=== PATIENT | female | born 1945 | race Caucasian/White ===

== ENCOUNTER 2023-12-13 14:31 | Inpatient (IN) | payer OTHER ==
[~2023-12-13] VITALS: Ht 162.6 cm; Wt 62.5 kg
[2023-12-13] MEDS: cloNIDine HCL 0.1 MG TAB PO ONE (15:06)
[2023-12-13 15:32] LABS: Basophils # (auto) 0 10 ^3/uL (0-0.2); Basophils % (auto) 0.4 % (0.0-2.0); Eosinophils # (auto) 0.1 10 ^3/uL (0-0.8); Eosinophils % (auto) 0.9 % (0.0-7.0); Hematocrit 41.7 % (36.0-46.0); Hemoglobin 13.9 g/dL (12.2-16.2); Lymphocytes % (auto) 14.8 % (10.0-50.0); Mean Corpuscular Hemoglobin 31.8 pg (28.0-32.0); Mean Corpuscular Hgb Conc. 33.5 g/dL (32.0-36.0); Mean Corpuscular Volume 95.1 fL (80.0-100.0); Monocytes # (auto) 0.3 10 ^3/uL (0-1.3); Monocytes % (auto) 4.9 % (0.0-12.0); Neutrophils # (auto) 5.2 10 ^3/uL (1.6-8.6); Nucleated Red Blood Cells % 0.1 %; Platelet Count (auto) 386 10^3/uL (140-450); Red Blood Cells 4.38 10^6/uL (4.0-5.20); Red Cell Distribution Width 14.1 % (11.8-14.3); White Blood Cell 6.6 10^3/uL (4.4-10.8)
[2023-12-13 15:51] LABS: Alanine Aminotransferase 22 U/L (7-40); Albumin 4.2 g/dL (3.2-4.8); Alkaline Phosphatase 92 U/L (46-116); Anion Gap 8 (5-15); Aspartate Aminotransferase 34 U/L (13-40); BUN/Creatinine Ratio 20.8 (10.0-20.0); Bilirubin, Total 0.5 mg/dL (0.2-1.0); Blood Urea Nitrogen 22 mg/dL (9-23); Calcium 9.2 mg/dL (8.7-10.4); Carbon Dioxide 25 mmol/L (20-31); Chloride 108 mmol/L (98-107); Glucose 104 mg/dL (74-106); Potassium 4.4 mmol/L (3.5-5.1); Sodium 141 mmol/L (136-145); Total Protein 6.3 g/dL (5.7-8.2)
[2023-12-13] MEDS: MECLIZINE HCL 25 MG TAB PO ONE (17:14)
[2023-12-13] MEDS: ONDANSETRON HCL 4 MG/2 ML VIAL IV ONE (17:14)
[2023-12-13] MEDS ORDERED: ACETAMINOPHEN 500 MG TAB PO PRN (22:15)
[2023-12-13] MEDS ORDERED: hydrALAZINE HCL 20 MG/ML VL IV PRN (22:15)
[2023-12-13] MEDS ORDERED: traMADol HCL 50 MG TAB PO PRN (22:15)
[2023-12-13] MEDS ORDERED: ONDANSETRON HCL 4 MG/2 ML VIAL IV PRN (22:15)
[2023-12-13] MEDS ORDERED: MORPHINE SULFATE INJ 2 MG/ml SYRG IV PRN (22:15)
[2023-12-13 23:30] VITALS: PULSE 68; RESP 16; O2SAT 96
[2023-12-13] MEDS: SENNA 8.6 MG TAB PO ONE (23:37)
[2023-12-13] MEDS: CLOPIDOGREL BISULFATE 75 MG TAB PO ONE (23:37)
[2023-12-13] MEDS: LOSARTAN POTASSIUM 50 MG TAB PO ONE (23:38)
[2023-12-13] MEDS: OXYCODONE W/ ACETAMINOPHEN 5/325MG TABLET PO PRN (23:39)
[2023-12-13] MEDS: ATORVASTATIN 20 MG TAB PO ONE (23:39)
[2023-12-14 01:36] LABS: Urine Bacteria FEW /hpf (None Seen); Urine Blood Negative /uL (Negative); Urine Clarity Clear (Clear); Urine Color Light-Yellow (Yellow); Urine Protein, UAD Negative (Negative); Urine Specific Gravity 1.011 (1.001-1.035); Urine Urobilinogen Normal (Negative); Urine WBC 11 /hpf (0 - 5); Urine WBC Clumps PRESENT /hpf (None Seen); Urine pH 5.5 (5.0-9.0)
[2023-12-14 01:38] LABS: Amphetamine Screen, Urine Neg (NEGATIVE); Barbiturate Scree,Urine Neg (NEGATIVE); Benzodiazephine Screen, Urine Neg (NEGATIVE); Cocaine Screen, Urine Neg (NEGATIVE); Opiate Scree,Urine Neg (NEGATIVE); Phencyclidine Screen, Urine Neg (NEGATIVE)
[2023-12-14 02:28] LABS: Cannabinoid Screen, Urine Neg (NEGATIVE)
[2023-12-14] MEDS ORDERED: cefTRIAXone 1GM/50ML D5W 50 ML IV SCH (03:00)
[2023-12-14] MEDS: SODIUM CHLORIDE 0.9% 500 ML IV ONE (03:13)
[2023-12-14] MEDS: PANTOPRAZOLE 40 MG/10 ML VIAL INJ IV SCH (03:13)
[2023-12-14] MEDS: SODIUM CHLORIDE 0.9% 1,000 ML IV SCH (03:57)
[2023-12-14] MEDS: cefTRIAXone 1GM/50ML D5W 50 ML IV ONE (04:05)
[2023-12-14] MEDS: OXYCODONE W/ ACETAMINOPHEN 5/325MG TABLET PO PRN (04:06)
[2023-12-14] MEDS: ATORVASTATIN 20 MG TAB PO ONE (04:06)
[2023-12-14 06:34] LABS: Basophils # (auto) 0 10 ^3/uL (0-0.2); Basophils % (auto) 0.7 % (0.0-2.0); Eosinophils # (auto) 0.1 10 ^3/uL (0-0.8); Eosinophils % (auto) 1.9 % (0.0-7.0); Hematocrit 35.7 % (36.0-46.0); Lymphocytes # (auto) 1.7 10 ^3/uL (0.4-5.4); Lymphocytes % (auto) 33.7 % (10.0-50.0); Mean Corpuscular Hemoglobin 31.9 pg (28.0-32.0); Mean Corpuscular Hgb Conc. 33.8 g/dL (32.0-36.0); Mean Corpuscular Volume 94.6 fL (80.0-100.0); Monocytes # (auto) 0.5 10 ^3/uL (0-1.3); Monocytes % (auto) 10.2 % (0.0-12.0); Neutrophils # (auto) 2.8 10 ^3/uL (1.6-8.6); Neutrophils % (auto) 53.5 % (37.0-80.0); Nucleated Red Blood Cells % 0.1 %; Platelet Count (auto) 339 10^3/uL (140-450); Red Blood Cells 3.77 10^6/uL (4.0-5.20); Red Cell Distribution Width 13.6 % (11.8-14.3); White Blood Cell 5.2 10^3/uL (4.4-10.8)
[2023-12-14 06:48] LABS: Anion Gap 5 (5-15); Carbon Dioxide 26 mmol/L (20-31); Chloride 110 mmol/L (98-107); Potassium 4.5 mmol/L (3.5-5.1); Sodium 141 mmol/L (136-145)
[2023-12-14 06:49] LABS: Calcium 8.8 mg/dL (8.7-10.4)
[2023-12-14 06:55] LABS: BUN/Creatinine Ratio 15.1 (10.0-20.0); Blood Urea Nitrogen 16 mg/dL (9-23); Glucose 83 mg/dL (74-106)
[2023-12-14] MEDS: KETOROLAC TROMETH 30 MG/ML 1ML VIAL IV ONE (08:15)
[2023-12-14 09:32] LABS: COVID19 ANTIGEN SOFIA FIA NEGATIVE (NEGATIVE)
[2023-12-14] MEDS ORDERED: LOSARTAN POTASSIUM 50 MG TAB PO SCH (10:00)
[2023-12-14] MEDS: ENOXAPARIN SOD 30 MG/0.3 ML SYRINGE SC SCH (10:00)
[2023-12-14] MEDS ORDERED: CLOPIDOGREL BISULFATE 75 MG TAB PO SCH (10:00)
[2023-12-14] MEDS: LOSARTAN POTASSIUM 50 MG TAB PO SCH (11:08)
[2023-12-14] MEDS: CLOPIDOGREL BISULFATE 75 MG TAB PO SCH (11:08)
[2023-12-14 15:39] VITALS: BP 147/75; PULSE 56; RESP 22; TEMP 97.7
[2023-12-14 17:00] VITALS: BP 147/75; PULSE 56; RESP 22; TEMP 97.7; O2SAT 91
[2023-12-14 21:00] VITALS: BP 137/84; PULSE 74; RESP 18; TEMP 98.6; O2SAT 91
[2023-12-14] MEDS ORDERED: DOCUSATE SOD 100 MG CAP PO SCH (22:00)
[2023-12-14] MEDS: DOCUSATE SOD 100 MG CAP PO SCH (22:18)
[2023-12-14] MEDS: ATORVASTATIN 20 MG TAB PO SCH (22:23)
[2023-12-14] MEDS: SENNA 8.6 MG TAB PO SCH (22:23)
[2023-12-15] VITALS (7 sets, daily range): BP systolic 130–183; BP diastolic 81–106; PULSE 50–94; RESP 18–20; TEMP 97.1–98.4; O2SAT 92–98
[2023-12-15] MEDS: cefTRIAXone 1GM/50ML D5W 50 ML IV SCH (08:24)
[2023-12-15] MEDS ORDERED: LOSA-535 PO (12:00)
[2023-12-15] MEDS ORDERED: CLOP75TA70 PO (12:01)
[2023-12-15] MEDS ORDERED: CLON0.1T PO (12:02)
[2023-12-15] MEDS ORDERED: ATOR-47 PO (12:03)
[2023-12-15] MEDS ORDERED: SENN-58 PO (12:05)
[2023-12-15] MEDS ORDERED: ASPI-543 PO (12:06)
[2023-12-15] MEDS ORDERED: MULT-1018 PO (12:06)
[2023-12-15] MEDS: hydrALAZINE HCL 20 MG/ML VL IV PRN (17:52)
[2023-12-15] MEDS: cloNIDine HCL 0.1 MG TAB PO SCH (23:07)
[2023-12-16] VITALS (9 sets, daily range): BP systolic 138–162; BP diastolic 82–102; PULSE 71–109; RESP 18–20; TEMP 97.9–98.5; O2SAT 92–99
[2023-12-16] MEDS: ONDANSETRON ODT 4 MG TAB PO PRN (02:20)
[2023-12-16] MEDS: ACETAMINOPHEN 500 MG TAB PO PRN (02:22)
[2023-12-16] MEDS: DOXYCYCLINE 100MG/250ML 250 ML IV SCH (13:13)
[2023-12-16] MEDS: AZITHROMYCIN 500MG/ 250ML 250 ML IV SCH (16:56)
[2023-12-16] MEDS: NYSTATIN TOPICAL POWDER 15GM TOP SCH (21:51)
[2023-12-17] VITALS (7 sets, daily range): BP systolic 131–162; BP diastolic 59–94; PULSE 65–117; RESP 18–20; TEMP 97.7–98.6; O2SAT 90–95
[2023-12-17] MEDS ORDERED: SENNA 8.6 MG TAB PO SCH (22:00)
[2023-12-17] MEDS ORDERED: DOCUSATE SOD 100 MG CAP PO SCH (22:00)
== END 2023-12-17 19:20 | DRG 392 ==
LOC: EDBD 14:31 → ER 14:31 → OVERFLOW 22:23 → EAST 12-14 14:27
PROVIDERS: ATTEND Internal Medicine
DX: K52.9 Noninfective gastroenteritis and colitis, unspecified (principal); N30.00 Acute cystitis without hematuria; F11.20 Opioid dependence, uncomplicated; J98.11 Atelectasis; K59.00 Constipation, unspecified; E78.5 Hyperlipidemia, unspecified; G89.4 Chronic pain syndrome; I16.0 Hypertensive urgency; K76.0 Fatty (change of) liver, not elsewhere classified; Z86.73 Personal history of transient ischemic attack (TIA), and cerebral infarction without residual deficits
CPT/HCPCS: 36415; 70450; 71045; 74176; 80048; 80053; 80307; 81001; 82270; 82306; 82607; 83036; 83690; 84443; 84484; 85025; 87086; 87426; 93005; 93925; 97163; 99291; G0378; J1885; J2405; J2470; J3490; Q0162